=== PATIENT | female | born 1965 | race Caucasian/White ===

== ENCOUNTER → 2018-02-21 | Outpatient (CLI) | payer BC ==
--- NOTE | 2018-02-21 15:56 | CT ---
EXAMINATION TYPE: CT soft tissue neck w con DATE OF EXAM: 02/21/2018 COMPARISON: None HISTORY: SENSATION OF THROAT FULLNESS X3 MONTHS CT DLP: 374.2 mGycm CONTRAST: CT scan of the neck is performed with IV Contrast, patient injected with 100 mL of Isovue 300. Contrast enhanced CT of the neck was performed from the skull base through the lung apices. AIRWAY: The supraglottic, glottic, and subglottic portions of the airway appear patent and free of mass. SALIVARY GLANDS: The submandibular and parotid glands are free of mass or inflammatory process. THYROID GLAND: No nodules or masses seen. LYMPH NODES: No adenopathy seen greater than 1cm. LUNG APICES: No nodule or mass is seen. OTHER: Vascular structures are patent. No significant degenerative change of the cervical spine. N o abscess seen. IMPRESSION: No significant abnormality to account for the patient's symptoms. If symptoms persist consider suman moreno.
== END | disposition home or self-care (01) ==
LOC: RADCTMAIN 14:39
PROVIDERS: ATTEND Otolaryngology
DX: R10.13 Epigastric pain (principal)
CPT/HCPCS: 70491; Q9967

== ENCOUNTER → 2024-05-16 | Outpatient (CLI) | payer BC ==
--- NOTE | 2024-05-16 16:23 | MR ---
INDICATION: Patient age:Female; 58 years old; Reason for study: G44.52 NEW DAILY PERSISTENT HEADACHE ([facility]); [facility]. COMPARISON: None. TECHNIQUE: Multi planar, multi sequence imaging was performed through the brain. The patient was then given 8 cc of Gadobutrol intravenously and multi planar, T1 fat-saturation images were obtained. FINDINGS: The joshi-white junctions, ventricular system, basal cisterns appear unremarkable. Age-appropriate cer ebral volume. Diffusion-weighted imaging shows no evidence of restricted diffusion to suggest acute/s ubacute infarct. Intracranial arterial flow voids are maintained. Midline structures show no abnormal ity. Couple of foci of high T2/FLAIR signal intensity are seen within the subcortical white matter. L argest measuring up to 2 mm is identified within the right frontal lobe subcortical white matter (ser ies 601, image 26). The susceptibility weighted images do not reveal any evidence for micro-hemorrhag e. After administration of gadolinium, no abnormal enhancement is seen. The bone marrow signal is within normal limits. The paranasal sinuses and globes are unremarkable. T race bilateral mastoid T2 hyperintensity. IMPRESSION: 1. No evidence of intracranial mass, acute/subacute infarct, or abnormal enhancement. 2. Minimal nonspecific white matter changes. Etiologies include small vessel ischemic disease versus migraine versus demyelination versus other. No contrast enhancement to suggest active demyelination. [facility], , 05/16/2024 4:21 PM
== END | disposition home or self-care (01) ==
LOC: RADMRIMAIN 14:37
PROVIDERS: ATTEND Family Medicine
DX: G44.52 New daily persistent headache (NDPH) (principal); R90.82 White matter disease, unspecified
CPT/HCPCS: 70553; A9585